=== PATIENT | male | born 1985 | race American Indian/Alaskan Native ===

== ENCOUNTER 2017-01-31 18:57 | Emergency (ER) | payer SELFPAY ==
[2017-01-31 19:05] VITALS: BP 147/83
--- NOTE | 2017-02-05 07:25 | ED Elopement Review ---
ED Pt Elopement review - Call Back decision Pt Call Back Decision: No action required
== END 2017-01-31 20:45 | disposition left against medical advice (07) ==
LOC: ED 18:57
DX: R11.2 Nausea with vomiting, unspecified (principal); R19.7 Diarrhea, unspecified; Z53.21 Procedure and treatment not carried out due to patient leaving prior to being seen by health care provider